=== PATIENT | male | born 1970 | race Caucasian/White ===

== ENCOUNTER 2016-10-30 18:56 | Emergency (ER) | payer OTHER ==
[2016-10-30 19:47] VITALS: RESP 18
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
[2016-10-30 23:00] VITALS: BP 129/75; PULSE 71; TEMP 98.1
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
[2016-11-02 23:55] VITALS: O2SAT 100
== END 2016-10-30 22:58 | disposition home or self-care (01) ==
LOC: SUPCPDRO 18:56 → C.ER 18:56
DX: S52.122A Displaced fracture of head of left radius, initial encounter for closed fracture (principal); V19.9XXA Pedal cyclist (driver) (passenger) injured in unspecified traffic accident, initial encounter; Y93.55 Activity, bike riding